=== PATIENT | female | born 1955 | race Caucasian/White ===

== ENCOUNTER 2023-01-25 23:50 | Inpatient (IN) | payer OTHER ==
[~2023-01-25] VITALS: Ht 160 cm; Wt 77.1 kg
[2023-01-25 23:55] VITALS: BP 253/100; PULSE 104; RESP 15; TEMP 98.3; O2SAT 100
--- NOTE | 2023-01-25 23:55 | NUR ---
[facility] TO BED #5
[2023-01-26] VITALS (8 sets, daily range): BP systolic 103–133; BP diastolic 49–64; PULSE 85–106; RESP 18–19; TEMP 97.6–98.7; O2SAT 95–100
--- NOTE | 2023-01-26 00:30 | NUR ---
67 Y/O F PRESENTS FROM HOME WITH ACHING SHARP UPPER ABD PAIN X3HRS. PT HAS N DENIES ANY VD. IN ROUTE WITH [facility]FRAN AND FENTANYL WAS ADMINSTERED. PT IS A&OX4, SKIN INTACT, AMBULATORY. PMH- DEPRESSION, DM, PANCEATITIS, LAD, HTN, IBS ALLERGIES- METOCLOPRAMIDE
[2023-01-26 00:43] LABS: BASOPHILS # (AUTO) 0.1 K/uL (0.00-0.22); BASOPHILS % (AUTO) 0.6 % (0.0-2.0); EOSINOPHILS % (AUTO) 0.1 % (0.0-4.0); HEMOGLOBIN 13.7 g/dL (12.0-16.0); LYMPHOCYTES # (AUTO) 1.7 K/uL (2.5-16.5); LYMPHOCYTES % (AUTO) 10.2 % (20.5-51.1); MEAN CORPUSCULAR HEMOGLOBIN 29 pg (27-31); MEAN CORPUSCULAR HGB CONC 34 g/dL (33-37); MEAN CORPUSCULAR VOLUME 85.9 fL (80-94); MONOCYTES # (AUTO) 0.8 K/uL (0.8-1.0); MONOCYTES % (AUTO) 4.9 % (1.7-9.3); NEUTROPHILS # (AUTO) 13.9 K/uL (1.8-7.7); NEUTROPHILS % (AUTO) 84.2 % (42.2-75.2); PLATELET COUNT (AUTO) 295 K/uL (140-450); RED BLOOD CELL COUNT(AUTO) 4.77 MIL/uL (4.20-5.40); WHITE BLOOD COUNT (AUTO) 16.5 K/uL (4.8-10.8)
[2023-01-26] MEDS ORDERED: ONDANSETRON 4 MG/2 ML VIAL IVP ONE (00:50)
[2023-01-26] MEDS ORDERED: MORPHINE SULFATE 4 MG/ML SYR IVP ONE (00:50)
[2023-01-26 01:06] LABS: ANION GAP 25.2 (8-16); ASPARTATE AMINOTRANSFERASE 18 U/L (15-37); CARBON DIOXIDE 17.5 mmol/L (21-32); CHLORIDE 100 mmol/L (98-107); CREATININE 1.4 mg/dL (0.6-1.3); GFR ARICAN-AMERICAN 48 mL/min (>90); GLUCOSE 318 mg/dL (74-106); LIPASE 131 U/L (73-393); POTASSIUM 3.7 mmol/L (3.5-5.1); SODIUM SERUM 139 mmol/L (136-145); UREA NITROGEN, BLOOD 35 mg/dL (7-18)
--- NOTE | 2023-01-26 02:00 | NUR ---
PT AMBUALTORY TO RESTROOM WITHOUT ASSISTANCE
[2023-01-26] MEDS ORDERED: HALOPERIDOL IM 5 MG/ML VIAL IM ONE (02:10)
--- NOTE | 2023-01-26 03:17 | NUR ---
PT AMBULATORY TO RESTROOM WITHOUT ASSISTANCE
[2023-01-26] MEDS ORDERED: NACL 0.9% 1,000 ML IV ONE (04:05)
[2023-01-26] MEDS ORDERED: cefTRIAXone 1,000 MG VIAL ONE ×2 (04:39→05:50)
[2023-01-26] MEDS ORDERED: FURO-570 PO (05:09)
[2023-01-26] MEDS ORDERED: ASPI-1822 PO (05:09)
[2023-01-26] MEDS ORDERED: POTA10TA70 PO (05:09)
[2023-01-26] MEDS ORDERED: PRAS10TA8 PO (05:09)
[2023-01-26] MEDS ORDERED: LOSA100T2 PO (05:09)
[2023-01-26] MEDS ORDERED: CARV12.5 PO (05:09)
[2023-01-26] MEDS ORDERED: AMLO10TA PO (05:09)
[2023-01-26] MEDS ORDERED: PARO25TA PO (05:09)
[2023-01-26] MEDS ORDERED: ROSU5TAB PO (05:09)
[2023-01-26] MEDS ORDERED: MONT-72 PO (05:09)
[2023-01-26] MEDS ORDERED: MORPHINE SULFATE 2 MG/ML SYR IVP PRN (05:10)
[2023-01-26] MEDS ORDERED: HYDROcodone/APAP 5/325 MG 1 TAB TAB PO PRN (05:10)
[2023-01-26] MEDS ORDERED: ONDANSETRON 4 MG/2 ML VIAL IVP PRN (05:10)
[2023-01-26] MEDS ORDERED: LORazepam 2 MG/ML VIAL IVP PRN (05:10)
[2023-01-26] MEDS ORDERED: ACETAMINOPHEN 325 MG TAB PO PRN (05:10)
[2023-01-26] MEDS ORDERED: VITA400C41 PO (05:19)
[2023-01-26] MEDS ORDERED: PANT40EC PO (05:19)
[2023-01-26] MEDS ORDERED: TRAZ-343 PO (05:19)
[2023-01-26] MEDS ORDERED: LACT1CAP94 PO (05:19)
[2023-01-26] MEDS ORDERED: BEN10 PO (05:21)
[2023-01-26] MEDS ORDERED: ALBU0.0912 INH (05:25)
[2023-01-26] MEDS ORDERED: FLO44 IH (05:25)
[2023-01-26 05:26] LABS: APPEARANCE,URINE CLEAR (CLEAR); BILIRUBIN,URINE NEGATIVE (NEGATIVE); BLOOD, URINE 1+ (NEGATIVE); COLOR,URINE YELLOW (YELLOW); LEUKOCYTE ESTERASE ,URINE NEGATIVE (NEGATIVE); NITRITE, URINE NEGATIVE (NEGATIVE); UGLUCOSE 3+ (NEGATIVE)
[2023-01-26] MEDS: NACL 0.9% 1,000 ML IV SCH ×2 (05:48→14:19)
--- NOTE | 2023-01-26 07:10 | NUR ---
Pt report given to BRONWYN VELASQUEZ. Transfer of care at this time.
--- NOTE | 2023-01-26 07:10 | NUR ---
REPORT RECEIVED FROM KENDY VELASQUEZ. ASSUMED CARE AT THIS TIME
--- NOTE | 2023-01-26 07:15 | NUR ---
pt awake and c/o new nausea onset and states feeling anxious. denies pain at this time. on parent educator.
--- NOTE | 2023-01-26 08:11 | NUR ---
Patient will be admitted to care of MD ROJAS. Admited to M/S. Will go to room 112A. Belongings list completed. Report to JEREMIAH VELASQUEZ.
--- NOTE | 2023-01-26 08:41 | NUR ---
RECEIVE PATIENT REPORT FROM ER NURSE WHILE SPOUSE ACCOMPANY AT [facility] THAT PATIENT COME FROM HOME FOR CONSTIPATION, EPIGASTRIC PAIN W/ NAUSEA & VOMITING X1. FULL CODE PATIENT ADMIT UNDER CARE OF DR. ROJAS FOR TRAVIS WITH HX OF DM, IBS, HTN, HLD, ASTHMA, CAD W/ STEN. PATIENT AMBULATORY, ALLERGY TO METOCLOPRAMIDE, ALERT X 4, GUINEAN SPEAK, CURRENT ON 2 LITER VIA NC, RECEIVE ROCEPHIN X 2 IN ER, HAS BE IN 01/26/2023. ON NS@100ML/HR Q 10 HOUR. PATIENT CURRENT HAS NO IV INFUSING. SALINE LOCK PRESENT AT L. FOREARM 20G. STEVE GRAVES COLLECTED, VITAL WITHIN PATIENT'S BASELINE (T-P-R: 98.4-106-18, BP:103/49, O2 SAT 95% ON 2 LITER VIA NC). WILL CONTINUE TO MONITOR Addendum: 01/26/23 at 1935 by Sheila Abbasi RN ENDORSE PATIENT (DIZZINESS, SLEEPING ALMOST WHOLE DAY SHIFT) TO PM SHIFT NURSE, PER THAT DID TRAVEL TO [place] AND VISITED HER SISTER DURING PAST ONE YEAR, BUT PATIENT HAD 4 STENT FROM STROKE IN THE PAST. IV AT L. FOREARM 20 INFUSING NS @100ML/HR. MB AT 01/26/2023. 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
--- NOTE | 2023-01-26 08:57 | NUR ---
PATIENT HAS BEEN SCREENED AND CATEGORIZED LOW NUTRITION RISK. PATIENT WILL BE SEEN WITHIN 7 DAYS OF ADMISSION. 02/02/[address]
--- NOTE | 2023-01-26 09:37 | NUR ---
The patient's care was reviewed and supervised by DUSTY WOMACK RN.
[2023-01-26] MEDS ORDERED: DEXTROSE 50% 50 ML SYR IVP PRN (11:00)
[2023-01-26] MEDS ORDERED: CLOPIDOGREL 75 MG TAB PO SCH (11:14)
[2023-01-26] MEDS: PANTOPRAZOLE 40 MG TABEC PO SCH (11:16)
[2023-01-26] MEDS: carvediloL 12.5 MG TAB PO SCH ×2 (11:17→20:15)
[2023-01-26] MEDS: LOSARTAN 50 MG TAB PO SCH ×2 (11:17→20:15)
[2023-01-26] MEDS: ASPIRIN 81 MG TAB.CHEW PO SCH (11:17)
[2023-01-26] MEDS: amLODIPine 5 MG TAB PO SCH (11:18)
[2023-01-26] MEDS: PARoxetine 10 MG TAB PO SCH (11:23)
[2023-01-26] MEDS: ATORVASTATIN 20 MG TAB PO SCH (11:24)
[2023-01-26] MEDS: BLOOD GLUCOSE MONITORING 1 DEV DEV FS SCH ×3 (11:30→20:26)
[2023-01-26] MEDS: INSULIN LISPRO SLIDING SCALE 100 UNITS/ML VIAL SUBQ PRN ×2 (12:50→20:19)
[2023-01-26 14:58] LABS: ANION GAP 17.8 (8-16); CARBON DIOXIDE 23.4 mmol/L (21-32); CREATININE 1.7 mg/dL (0.6-1.3); POTASSIUM 4.2 mmol/L (3.5-5.1)
--- NOTE | 2023-01-26 15:37 | NUR ---
DC PLANNING A 67 YO FEMALE WITH HX OF DM,HTN,HIGH CHOLESTEROL ,ASTHMA,CAD AND PANCREATITIS ADMITTED TO MED SURG UNIT FOR ACUTE ONSET OF EPIGASTRIC ABDOMINAL PAIN ASSOCIATED WITH NAUSEA, VOMITING AND WATER DIARRHEA.100MCG OF FENTANYL WAS GIVEN IN ED BUT WITH NO IMPROVEMENT OF PAIN.ABDOMEN/PELVIS CT SHOWS LEFT RENAL POSSIBLE SMALL MASS.ON PLAVIX FOR HX OF CARDIAC STENT AND .ON HUMULOG SLIDING SCALE AND HEPARIN DRIP .WBC 16.5.ON CEFTRIAXONE.WITH MSO4 FOR PAIN CONTROL.DC PLAN- DC HOME WHEN PATIENT RESPONDS TO TX.CM TO FOLLOW. Addendum: 01/26/23 at 1553 by DELLA VIZCARRA CM LATE ENTRY.AUTH FOR HOSPITAL STAY #[id number] PROVIDED BY [facility]ORY AT [facility] .[facility] AGRICULTURAL EDUCATION INSTRUCTOR TO ENTER AUTH AT [facility]. Addendum: 01/27/23 at 1022 by ASUNCION CEDENO CM RECEIVED ODER FOR PATIENT TO GET AN OUTPATIENT MRI OF ADOMEN, A KIDNEY PROTOCOL FOR ABNORMAL CYST. FAXED ORDER AND FACE SHEET TO INSURANCE.
--- NOTE | 2023-01-26 16:55 | NUR ---
[employer] BUSINESS ADMINISTRATOR met with both pt. and at bedside. Pt. is a retired Rn (NICU for premies). Pt. stated her primary dr. is Dr. Tor Perez in [place]. Pt. was able to participate in a discharge planning assessment.
--- NOTE | 2023-01-26 19:30 | NUR ---
RECEIVED PT FROM DAY RN FOR CONTINUITY OF CARE. PT AWAKE, ALERT AND ORIENTED X 4, ON 2L O2 VIA NC, BREATHING EVEN AND UNLABORED. NO S/SX OF DISTRESS AT THIS MOMENT. IV ON L FA G 20, PATENT AND INTACT. POC DISCUSSED. ALL PRECAUTIONS IN PLACE. CALL LIGHT WITHIN REACH. WILL CONTINUE TO MONITOR.
[2023-01-26] MEDS ORDERED: traZODone 50 MG TAB PO SCH (21:00)
--- NOTE | 2023-01-26 21:00 | NUR ---
SCHEDULED MEDICATIONS GIVEN. PT TOLERATED WELL. BLOOD SUGAR WAS CHECKED USING PATIENT'S DEXCOM. BLOOD SUGAR WAS 290. COVERED WITH 6UNITS INSULIN PER SLIDING SCALE.
[2023-01-27] MEDS: NACL 0.9% 1,000 ML IV SCH ×2 (02:24→11:10)
--- NOTE | 2023-01-27 03:30 | NUR ---
PT ASLEEP.BREATHING EVEN AND UNLABORED, NO S/SX OF RESPIRATORY DISTRESS.ALL SAFETY PRECAUTIONS IN PLACE. CALL LIGHT WITHIN REACH . WILL CONTINUE TO MONITOR.
[2023-01-27 04:00] VITALS: BP 104/49; PULSE 76; RESP 18; TEMP 97.7; O2SAT 96
[2023-01-27] MEDS: BLOOD GLUCOSE MONITORING 1 DEV DEV FS SCH ×2 (06:30→11:55)
[2023-01-27 06:35] LABS: ALBUMIN 2.9 g/dL (3.4-5.0); ANION GAP 12.7 (8-16); CARBON DIOXIDE 24.2 mmol/L (21-32); CREATININE 1.3 mg/dL (0.6-1.3); MAGNESIUM 2.2 mg/dL (1.8-2.4); POTASSIUM 3.9 mmol/L (3.5-5.1); TOTAL BILIRUBIN 0.3 mg/dL (0.0-1.0)
[2023-01-27] MEDS: INSULIN LISPRO SLIDING SCALE 100 UNITS/ML VIAL SUBQ PRN ×2 (06:39→11:53)
[2023-01-27 07:09] LABS: BASOPHILS # (AUTO) 0.1 K/uL (0.00-0.22); BASOPHILS % (AUTO) 0.9 % (0.0-2.0); EOSINOPHILS # (AUTO) 0.1 K/uL (0-0.4); EOSINOPHILS % (AUTO) 0.8 % (0.0-4.0); HEMATOCRIT 34.9 % (36-48); HEMOGLOBIN 11.7 g/dL (12.0-16.0); LYMPHOCYTES # (AUTO) 4.7 K/uL (2.5-16.5); LYMPHOCYTES % (AUTO) 37.4 % (20.5-51.1); MEAN CORPUSCULAR HEMOGLOBIN 29 pg (27-31); MEAN CORPUSCULAR HGB CONC 33 g/dL (33-37); MEAN CORPUSCULAR VOLUME 87.5 fL (80-94); MONOCYTES # (AUTO) 0.7 K/uL (0.8-1.0); MONOCYTES % (AUTO) 5.2 % (1.7-9.3); NEUTROPHILS # (AUTO) 6.9 K/uL (1.8-7.7); NEUTROPHILS % (AUTO) 55.7 % (42.2-75.2); PLATELET COUNT (AUTO) 213 K/uL (140-450); RED BLOOD CELL COUNT(AUTO) 3.99 MIL/uL (4.20-5.40); WHITE BLOOD COUNT (AUTO) 12.5 K/uL (4.8-10.8)
[2023-01-27 07:11] VITALS: O2SAT 97
--- NOTE | 2023-01-27 07:12 | NUR ---
RECEIVED PT ON 2L NASAL CANNULA. NO SOB, EQUAL CHEST RISE, NO DISTRESS NOTED. ADDED BUBBLE HUMIDIFIER FOR PT COMFORT. WILL CONTINUE TO MONITOR PATIENT.
--- NOTE | 2023-01-27 07:16 | NUR ---
PT IS STABLE. NO ACUTE EVENTS THROUGHOUT THE NIGHT. ALL NEEDS MET. NO S/SX OF DISTRESS AT THE MOMENT. ALL PRECAUTIONS IN PLACE. CALL LIGHT WITHIN REACH. WILL ENDORSE TO MORNING SHIFT NURSE.
--- NOTE | 2023-01-27 07:31 | NUR ---
GOT REPORT FROM THE NIGHT NURSE PT AWAKE , LOOKS COMFORTABLE NO SOB.[id number]
[2023-01-27 08:00] VITALS: BP 116/56; PULSE 75; PULSE 87; RESP 16; RESP 18; TEMP 98.3; O2SAT 100; O2SAT 96
[2023-01-27] MEDS: amLODIPine 5 MG TAB PO SCH (08:46)
[2023-01-27] MEDS: PARoxetine 10 MG TAB PO SCH (08:47)
[2023-01-27] MEDS: LOSARTAN 50 MG TAB PO SCH (08:48)
[2023-01-27] MEDS: PANTOPRAZOLE 40 MG TABEC PO SCH (08:48)
[2023-01-27] MEDS: ATORVASTATIN 20 MG TAB PO SCH (08:48)
[2023-01-27] MEDS: carvediloL 12.5 MG TAB PO SCH (08:49)
[2023-01-27] MEDS: ASPIRIN 81 MG TAB.CHEW PO SCH (08:49)
[2023-01-27] MEDS ORDERED: NON-FORMULARY ITEM (Rosuvastatin Calcium* (Crestor*) 1 TAB) PO SCH (09:00)
[2023-01-27] MEDS ORDERED: PRASUGREL 10MG TAB PO SCH (09:00)
[2023-01-27] MEDS ORDERED: PRASUGREL HCL 10 MG PO SCH (09:00)
--- NOTE | 2023-01-27 09:10 | NUR ---
PT ARRIVED IN THE UNIT, GOT REPORT FROM THE ER NURSE THE ASSESSMENT DONE , REORIENTED THE HOSPITAL ENVIRONMENT, PT STABLE NO SOB, IN ROOM AIR, SHE WANTS TO EAT,[id number]
--- NOTE | 2023-01-27 09:25 | NUR ---
PRASUGEL 10MG ONE TABLET GIVEN , THE SCANNER, DO NOT SCAN USED MANUAL INPUT,PHARMACY VERIFIED.[id number]
[2023-01-27 10:37] VITALS: BP 116/56; PULSE 75; RESP 16; TEMP 98.3
--- NOTE | 2023-01-27 12:43 | NUR ---
PT ON ROOM AIR, SATURATION 97%. NO SOB, NO DISTRESS NOTED. WILL CONTINUE TO MONITOR.
--- NOTE | 2023-01-27 13:09 | NUR ---
PT DISCHARGED HOME DISCHARGE INSTRUCTION IS GIVEN , ID AND IV REMMED PT LEFT WITH HER WITHOUT ANY DISCOMFORT.[id number]
== END 2023-01-27 13:10 | disposition home or self-care (01) | DRG 391 ==
LOC: MED 23:50 → OBSVTOIN 01-26 05:13 → MMU 01-26 05:13 → MTU 01-26 08:07
PROVIDERS: ADMIT Hospitalist; ATTEND Hospitalist
DX: K52.9 Noninfective gastroenteritis and colitis, unspecified (principal); N17.0 Acute kidney failure with tubular necrosis; I13.0 Hypertensive heart and chronic kidney disease with heart failure and stage 1 through stage 4 chronic kidney disease, or unspecified chronic kidney disease; I50.32 Chronic diastolic (congestive) heart failure; E78.00 Pure hypercholesterolemia, unspecified; K21.9 Gastro-esophageal reflux disease without esophagitis; I25.10 Atherosclerotic heart disease of native coronary artery without angina pectoris; I25.5 Ischemic cardiomyopathy; N18.31 Chronic kidney disease, stage 3a; E11.22 Type 2 diabetes mellitus with diabetic chronic kidney disease; Z88.8 Allergy status to other drugs, medicaments and biological substances; Z79.899 Other long term (current) drug therapy; Z79.82 Long term (current) use of aspirin
CPT/HCPCS: 36415; 76705; 80048; 80053; 81001; 82948; 83690; 83735; 84484; 85025; 87040; 87081; 87086; 93005; 96365; 96372; 96375; 99285; J0696; J1630; J1644; J2060; J2270; J2405; J7060; Q0092